=== PATIENT | male | born 1975 | race Caucasian/White ===

== ENCOUNTER 2017-07-12 14:37 | Outpatient (CLI) | payer BC ==
[~2017-07-12 14:37] MED LIST: Gadobenate Dimeglumine 529 MG/1 ML (20ML VIAL) ONE
== END 2017-07-12 14:38 | disposition home or self-care (01) ==
LOC: BICMRI 14:37
PROVIDERS: ATTEND General Practice
DX: R22.2 Localized swelling, mass and lump, trunk (principal)
CPT/HCPCS: 71552; A9579